=== PATIENT | female | born 1955 | race African-American/Black ===

== ENCOUNTER 2017-01-19 08:50 | Emergency (ER) | payer SELFPAY ==
[~2017-01-19] VITALS: Ht 165.1 cm; Wt 77.1 kg
[~2017-01-19 08:50] MED LIST: AMLO10TA2 PO; CARV25TA2 PO; Doxycycline Hyclate PO; ESTR1TAB15 PO; HYDR25TA9 PO; LISINOPRIL; SIMV20TA3 PO
--- NOTE | 2017-01-19 09:39 | PHYS DOC ---
Past Medical History Past Medical History: High Cholesterol, Hypertension Past Surgical History: Hysterectomy, Other Additional Past Surgical Histo: BACK SGRY Alcohol Use: None Drug Use: None Adult General Chief Complaint Chief Complaint: HYPERTENSION HPI HPI Patient is a 61 year old F who presents with headache and high blood pressure. Patient states she takes carvidial in the mornings. Patient states this morning she woke up with blurry vision and a headache and her blood pressures at home were over 200 systolic. In the emergency room she is 220 systolic with symptoms of a headache and blurry vision. Patient denies any chest pain or shortness of breath. Patient denies any nausea or vomiting. Patient denies any fevers. Patient has no other complaints. Review of Systems Review of Systems GEN: Denies fevers, chills, sweats HEENT: Blurry vision CV: Denies chest pain RESP: Denies shortness of air, cough GI: Denies n/v/d NEURO: Headache MSK: Denies weakness, joint pain/swelling Current Medications Current Medications Current Medications Medications (Trade) Dose Ordered Sig/[place] Start Time Stop Time Status Last Admin Dose Admin Clonidine HCl (Catapres) 0.2 mg 1X ONCE 01/19/17 09:45 01/19/17 09:46 DC 01/19/17 10:02 0.2 MG Allergies Allergies Allergies Coded Allergies Type Severity Reaction Last Updated Verified No Known Drug Allergies 10/12/13 No Physical Exam Physical Exam GEN.: No apparent distress. Alert and oriented. HEENT: Head is normocephalic, atraumatic NECK: Supple. LUNGS: CTAB. HEART: RRR, S1, S2 present. Peripheral pulses intact ABDOMEN: Soft, nontender. Positive bowel sounds. EXTREMITIES: Without any cyanosis. NEUROLOGIC: Normal speech, normal tone, cranial nerves II through XII are grossly intact without focal neurological deficits PSYCHIATRIC: Normal affect, normal mood. SKIN: No ulcerations Current Patient Data Vital Signs Vital Signs Date Time Temp Pulse Resp B/P (MAP) Pulse Ox O2 Delivery O2 Flow Rate FiO2 01/19/17 11:47 54 18 121/70 (87) 97 Room Air 01/19/17 08:55 97.7 97.7 Lab Values Laboratory Tests Test 01/19/17 09:10 01/19/17 10:10 Sodium Level 140 mmol/L (136-145) Potassium Level 3.1 mmol/L (3.5-5.1) L Chloride Level 102 mmol/L (98-107) Carbon Dioxide Level 29 mmol/L (21-32) Anion Gap 9 (6-14) Blood Urea Nitrogen 8 mg/dL (7-20) Creatinine 0.8 mg/dL (0.6-1.0) Estimated GFR (Cockcroft-Gault) 88.8 BUN/Creatinine Ratio 10 (6-20) Glucose Level 114 mg/dL (70-99) H Calcium Level 8.8 mg/dL (8.5-10.1) Total Bilirubin 0.9 mg/dL (0.2-1.0) Aspartate Amino Transferase (AST) 20 U/L (15-37) Alanine Aminotransferase (ALT) 28 U/L (14-59) Alkaline Phosphatase 43 U/L (46-116) L Troponin I Quantitative 0.037 ng/mL (0.000-0.055) Total Protein 8.1 g/dL (6.4-8.2) Albumin 4.0 g/dL (3.4-5.0) Albumin/Globulin Ratio 1.0 (1.0-1.7) White Blood Count 4.7 x10^3/uL (4.0-11.0) Red Blood Count 4.52 x10^6/uL (3.50-5.40) Hemoglobin 13.6 g/dL (12.0-15.5) Hematocrit 41.5 % (36.0-47.0) Mean Corpuscular Volume 92 fL (79-100) Mean Corpuscular Hemoglobin 30 pg (25-35) Mean Corpuscular Hemoglobin Concent 33 g/dL (31-37) Red Cell Distribution Width 13.2 % (11.5-14.5) Platelet Count 186 x10^3/uL (140-400) Neutrophils (%) (Auto) 44 % (31-73) Lymphocytes (%) (Auto) 41 % (24-48) Monocytes (%) (Auto) 9 % (0-9) Eosinophils (%) (Auto) 5 % (0-3) H Basophils (%) (Auto) 1 % (0-3) Neutrophils # (Auto) 2.1 x10^3uL (1.8-7.7) Lymphocytes # (Auto) 1.9 x10^3/uL (1.0-4.8) Monocytes # (Auto) 0.4 x10^3/uL (0.0-1.1) Eosinophils # (Auto) 0.2 x10^3/uL (0.0-0.7) Basophils # (Auto) 0.0 x10^3/uL (0.0-0.2) Laboratory Tests 01/19/17 10:10 Laboratory Tests 01/19/17 09:10 EKG EKG [] Radiology/Procedures Radiology/Procedures CT scan of head NAD [] Course & Med Decision Making Course & Med Decision Making Pertinent Labs and Imaging studies reviewed. (See chart for details) ED course: Patient was seen and examined emergency room CBC, CMP, troponin, EKG, CT scan of head without contrast ordered along with 0.2 mg Catapres 1203: On reexamination patient's blood pressure is 121/80 patient is asymptomatic with no headache and left go home. MDM: After reviewing the chart, CC/HPI/PMH, physical exam, [lab results], [ radiological results], I do not believe the patient is having hypertensive emergency warranting further workup and/or admission at this time. On reexamination the patient's blood pressure has come down after 0.2 mg Catapres and patient is asymptomatic and would like to go home. Recommended short-term follow-up with her PCP to further evaluate her blood pressure. Patient is stable for discharge. Additional verbal discharge instructions were provided to the patient and that if symptoms get worse or any new symptoms arise that are worrisome to the patient she is to return to the emergency room immediately [] Dragon Disclaimer Dragon Disclaimer This electronic medical record was generated, in whole or in part, using a voice recognition dictation system. Departure Departure Impression: Primary Impression: Accelerated hypertension Disposition: HOME, SELF-CARE Condition: IMPROVED Referrals: BRYN ARELLANO MD (PCP) Patient Instructions: Hypertension Additional Instructions: please f/u your family doctor in 1-2 days and return symptoms increase LIA OLGUIN DO Jan 19, 2017 09:38
[2017-01-19] MEDS ORDERED: cloNIDine HCL 0.1 MG TABLET PO ONE (09:45)
[2017-01-19 09:46] LABS: CALCIUM 8.8 mg/dL (8.5-10.1); CREATININE 0.8 mg/dL (0.6-1.0); GFR 88.8; POTASSIUM 3.1 mmol/L (3.5-5.1)
[2017-01-19 09:52] LABS: TOTAL BILIRUBIN 0.9 mg/dL (0.2-1.0); TOTAL PROTEIN 8.1 g/dL (6.4-8.2)
--- NOTE | 2017-01-19 09:53 | RAD ---
Exam performed: CT scan of the head without contrast. Date of Service: 01/19/17. Comparison: CT head without contrast from 10/26/13. Clinical History: Hypertension. Technique: Helical acquisitions are obtained from the foramen magnum to the vertex without intravenous administration of contrast. Findings: The ventricles are midline without evidence of dilatation. Normal davidson-white differentiation is maintained. There is no extra axial fluid collection, intraparenchymal hemorrhage or mass lesion. The visualized portions of the orbits, paranasal sinuses and the mastoid air cells appear clear. The calvarium is intact. Impression: 1. No acute intracranial process detected. PQRS Compliance Statement: One or more of the following individualized dose reduction techniques were utilized for this examination: 1. Automated exposure control 2. Adjustment of the mA and/or kV according to patient size 3. Use of iterative reconstruction technique
[2017-01-19 10:22] LABS: BASO % 1 % (0-3); EOS % 5 % (0-3); HEMATOCRIT 41.5 % (36.0-47.0); HEMOGLOBIN 13.6 g/dL (12.0-15.5); LYMPH # 1.9 x10^3/uL (1.0-4.8); LYMPH % 41 % (24-48); MEAN CORPUSCULAR HEMOGLOBIN 30 pg (25-35); MEAN CORPUSCULAR HGB CONC 33 g/dL (31-37); MEAN CORPUSCULAR VOLUME 92 fL (79-100); MONO % 9 % (0-9); NEUT % 44 % (31-73); PLATELET COUNT 186 x10^3/uL (140-400); RED BLOOD COUNT 4.52 x10^6/uL (3.50-5.40); RED CELL DISTRIBUTION WIDTH 13.2 % (11.5-14.5); WHITE BLOOD COUNT 4.7 x10^3/uL (4.0-11.0)
--- NOTE | 2017-01-19 10:37 | EKG ---
[facility] [address] [place] [address] Test Date: 2017-01-19 Test Time: 10:34:10 Pat Name: ISRAEL CANALES Department: Room: Gender: F Tray Packer: [place] : [id number] Requested By: LIA OLGUIN Order Number: [id number] Reading MD: Daniel Aden Measurements Intervals [place] Rate: 53 P: 90 GA: 196 QRS: -6 QRSD: 80 T: 48 QT: 464 QTc: 438 Interpretive Statements SINUS RHYTHM Electronically Signed On 01-21-2017 11:12:34 CDT by Daniel Aden
[2017-01-19 12:02] VITALS: BP 114/66
== END 2017-01-19 12:17 | disposition home or self-care (01) ==
LOC: ER 08:50
DX: I10 Essential (primary) hypertension (principal); E78.00 Pure hypercholesterolemia, unspecified
CPT/HCPCS: 36415; 70450; 80053; 84484; 85025; 93005; 99285-25